=== PATIENT | male | born 1955 | race Caucasian/White ===

== ENCOUNTER 2017-09-25 06:46 | Day surgery (SDC) | payer MEDICARE ==
[~2017-09-25] VITALS: Ht 175.3 cm; Wt 102.1 kg
[~2017-09-25 06:46] MED LIST: ALLOPURINOL300 MG PO; AUGMENTIN875TAB PO; CARVEDILOL3.125 MG PO; CIALIS5 MG PO; CLONAZEPAM1 MG PO; ENALAPRIL5 MG PO; FLONASE NASAL50 MCG; FUROSEMIDE20 MG PO; HYDROCODONE/ACE1 T10 PO; K-DUR/KLOR-CON10 MEQ PO; MELOXICAM7.5 MG PO; OMEPRAZOLE20 MG PO; ROXICODONE15 MG PO
[2017-09-25 07:58] LABS: BARBITURATES NEGATIVE (NEGATIVE); COCAINE NEGATIVE (NEGATIVE); METHADONE NEGATIVE (NEGATIVE); OXCYCODONE NEGATIVE (NEGATIVE); TETRAHYDROCANNABIONOL POSITIVE (NEGATIVE); TRICYLIC ANTIDEPRESSANTS NEGATIVE (NEGATIVE)
[2017-09-25 09:05] VITALS: BP 110/74
== END 2017-09-25 09:17 | disposition home or self-care (01) ==
LOC: ENDO 06:46
PROVIDERS: ATTEND Surgery
PROC: 0DJD8ZZ Inspection of Lower Intestinal Tract, Via Natural or Artificial Opening Endoscopic (ICD-10-PCS; principal; 2017-09-25)
DX: Z12.11 Encounter for screening for malignant neoplasm of colon (principal); I50.9 Heart failure, unspecified; M19.90 Unspecified osteoarthritis, unspecified site

== ENCOUNTER 2020-06-08 05:47 | Day surgery (SDC) | payer MEDICARE ==
[~2020-06-08] VITALS: Ht 175.3 cm; Wt 81.6 kg
[~2020-06-08 05:47] MED LIST changes: +ASPIRIN ADULT L81 M2 PO; +CARVEDILOL25 MG PO; +DIGOX125 MCG PO; +ENTRESTO 49-511 TAB PO; -HYDROCODONE/ACE1 T10 PO; +HYDROCODONE/ACE1 T12 PO; +LASIX20 MG PO; +NEXIUM20 M1 PO; +OXYCODONE10 M1 PO; +XARELTO15 MG PO; +ZOLOFT50 MG PO
[2020-06-08 07:53] VITALS: BP 108/68
== END 2020-06-08 08:17 | disposition home or self-care (01) ==
LOC: ORM 05:47
PROVIDERS: ATTEND Anesthesiology Pain Medicine
DX: M17.11 Unilateral primary osteoarthritis, right knee (principal); M17.12 Unilateral primary osteoarthritis, left knee; Z01.84 Encounter for antibody response examination

== ENCOUNTER 2020-12-21 06:08 | Day surgery (SDC) | payer MEDICARE ==
[~2020-12-21] VITALS: Ht 175.3 cm; Wt 82.6 kg
[2020-12-21 08:12] VITALS: BP 104/61
[2020-12-21] MEDS ORDERED: OXYCODONE10 M1 PO (08:29)
[2021-01-17] MEDS ORDERED: OXYCODONE10 M1 PO (10:20)
[2021-02-14] MEDS ORDERED: OXYCODONE10 M1 PO ×2 (08:03→08:09)
== END 2020-12-22 08:32 | disposition home or self-care (01) ==
LOC: ORM 06:08
PROVIDERS: ATTEND Anesthesiology Pain Medicine
DX: M54.5 Low back pain (principal); M12.9 Arthropathy, unspecified

== ENCOUNTER 2021-05-17 06:03 | Day surgery (SDC) | payer MEDICARE ==
[~2021-05-17] VITALS: Ht 175.3 cm; Wt 86.2 kg
[~2021-05-17 06:03] MED LIST changes: +MEDDOSEPAK PO
[2021-05-17 07:57] VITALS: BP 114/72
[2021-05-17] MEDS ORDERED: OXYCODONE10 M1 PO (08:03)
== END 2021-05-17 08:33 | disposition home or self-care (01) ==
LOC: ORM 06:03
PROVIDERS: ATTEND Anesthesiology Pain Medicine
DX: M54.2 Cervicalgia (principal)

== ENCOUNTER 2022-06-05 10:14 | Emergency (ER) | payer MEDICARE ==
[~2022-06-05] VITALS: Ht 175.3 cm; Wt 78.0 kg
[2022-06-05 10:25] VITALS: BP 107/50
[2022-06-05 10:32] VITALS: BP 137/119
[2022-06-05 11:00] VITALS: BP 87/50
[2022-06-05 11:03] VITALS: BP 101/52; BP 89/51
[2022-06-05 11:27] VITALS: BP 93/50
[2022-06-05 11:41] LABS: IMMATURE GRANULOCYTES 0.1 % (0.0-5.0); MEAN CELL VOLUME 98.2 fL CALC (80.0-100.0); MEAN CORPUSCULAR HGB 33.7 pG CALC (26.0-32.0); MEAN CORPUSCULAR HGB CONC 34.3 g/dL CAL (32.0-36.0); NEUT# 7.94 thou/uL (1.82-7.42); RED BLOOD COUNT 2.73 mill/uL (4.70-6.10); RED CELL DISTRI WIDTH 14.3 % (11.5-15.5)
[2022-06-05 11:43] LABS: HEMATOCRIT 26.8 % (39.0-50.0); HEMOGLOBIN 9.2 g/dl (14.0-18.0)
[2022-06-05 11:47] LABS: ALBUMIN 3.7 g/dL (3.2-5.0); ALKALINE PHOSPHATASE 85 u/l (38-126); ANION GAP 10 (6-22 (CALC)); BILIRUBIN, TOTAL 0.7 mg/dL (0.0-1.4); BUN 26 mg/dL (8-23); BUN/CREATININE RATIO 20 (12-20 (CALC)); CHLORIDE 101 mmol/l (95-108); CREATININE 1.3 mg/dL (0.7-1.3); GFR FOR AFR.AMER. > 60 ML/MIN (>=60 (CALC)); GFR OTHER RACES 55 ML/MIN (>=60 (CALC)); POTASSIUM 4.2 mmol/l (3.5-5.1); SGOT/AST 28 u/l (19-48); SODIUM 140 mmol/l (137-146); TOTAL PROTEIN 6.7 g/dL (6.3-8.2)
[2022-06-05 11:48] LABS: CARBON DIOXIDE 33 mmol/l (22-30)
[2022-06-05] MEDS ORDERED: NAPROXEN500 MG PO (12:26)
[2022-06-05 12:33] VITALS: BP 93/50
== END 2022-06-05 12:45 | disposition home or self-care (01) ==
LOC: ED 10:14
PROVIDERS: Emergency Medicine
DX: M17.11 Unilateral primary osteoarthritis, right knee (principal); I50.9 Heart failure, unspecified; M10.9 Gout, unspecified

== ENCOUNTER 2022-06-12 16:48 | Emergency (ER) | payer MEDICARE ==
[~2022-06-12] VITALS: Ht 175.3 cm; Wt 78.0 kg
[~2022-06-12 16:48] MED LIST changes: +NAPROXEN500 MG PO
[2022-06-12] MEDS ORDERED: OXYCODO-APAP1 TA2 PO (19:09)
[2022-06-12] MEDS ORDERED: PREDNISONE10 MG PO (19:09)
[2022-06-12 19:29] VITALS: BP 90/65
== END 2022-06-12 19:33 | disposition home or self-care (01) ==
LOC: ED 16:48
DX: M10.061 Idiopathic gout, right knee (principal); M17.11 Unilateral primary osteoarthritis, right knee; I50.9 Heart failure, unspecified